=== PATIENT | male | born 2000 | race Caucasian/White ===

== ENCOUNTER → 2020-10-25 | Outpatient (CLI) | payer OTHER ==
[2020-10-25 11:05] LABS: HEMOGLOBIN 15.4 gm/dl (14.0-17.5); RED BLOOD COUNT 5.09 M/UL (4.20-5.50); WHITE BLOOD COUNT 4.9 K/UL (4.5-11.0)
[2020-10-25 11:21] LABS: BUN/CREATININE RATIO 16 (0-10)
[2020-10-26 08:15] LABS: THYROXINE (T4) 8.4 ug/dL (4.5-12.0)
[2020-10-26 09:15] LABS: VITAMIN D, 25-HYDROXY 19.6 ng/mL (30.0-100.0)
== END ==
LOC: LAB 10:23
PROVIDERS: Nurse Practitioner Family
DX: R31.9 Hematuria, unspecified (principal); R53.83 Other fatigue
CPT/HCPCS: 36415; 80053; 84436; 84443; 84480; 85025

== ENCOUNTER 2021-06-12 17:23 | Emergency (ER) | payer OTHER ==
[2021-06-12] MEDS ORDERED: NAPROSYN500 MG PO (21:26)
[2021-06-12] MEDS ORDERED: CYCLOBENZAPRINE5 MG PO (21:26)
== END 2021-06-12 21:40 | disposition home or self-care (01) ==
LOC: ER1 17:23
DX: S39.012A Strain of muscle, fascia and tendon of lower back, initial encounter (principal); S33.5XXA Sprain of ligaments of lumbar spine, initial encounter; X50.9XXA Other and unspecified overexertion or strenuous movements or postures, initial encounter
CPT/HCPCS: 72128; 72131; 99283